=== PATIENT | male | born 1945 | race Caucasian/White ===

== ENCOUNTER 2022-11-04 06:24 | Day surgery (SDC) | payer MEDICARE ==
[~2022-11-04] VITALS: Ht 175.3 cm; Wt 65.1 kg
[2022-11-04 10:18] VITALS: BP 104/65; PULSE 56
--- NOTE | 2022-11-04 10:18 | NUR ---
1018 PATIENT RETURNS TO ROOM 7 VIA CART. PATIENT IS ALERT AND ORIENTED. RESPIRATIONS EVEN AND UNLABORED. VITAL SIGNS OBTAINED. PT HAS SPLINT AND DRESSING TO RIGHT HAND. DRESSING IS CDI. PT STATES THAT HE DOES NOT HAVE ANY PAIN. CAPILLARY REFILL BRISK. RADIAL PULSE STRONG. PT REQUESTED ORANGE JUICE. NO DIFFICULTIES SWALLOWING. 1105 DISCHARGE INSTRUCTIONS REVIEWED WITH PATIENT. PATIENT VERBALIZED UNDERSTANDING. 1110 DISCONTINUED IV FROM RIGHT FOREARM WITH NO DIFFICULTIES. IV CATHETER INTACT. 1140 PATIENT DISCHARGES FROM UNIT VIA WHEELCHAIR IN STABLE CONDITION.
[2022-11-04 10:33] VITALS: BP 104/65; PULSE 52
[2022-11-04 10:48] VITALS: BP 113/77; PULSE 54
[2022-11-04 12:01] VITALS: BP 137/71; PULSE 65; TEMP 97.1
== END 2022-11-04 11:40 | disposition home or self-care (01) ==
LOC: SDCO 06:24
DX: M72.0 Palmar fascial fibromatosis [Dupuytren] (principal); Z28.310 Unvaccinated for COVID-19
CPT/HCPCS: J0690; J1100; J2250; J2704; J2795; J3010; J7120